=== PATIENT | female | born 1945 | race Caucasian/White ===

== ENCOUNTER 2020-07-24 00:31 | Observation (INO) | payer MEDICARE, OTHER ==
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
[2020-07-24] MEDS ORDERED: Ondansetron ODT 4 MG TAB PO PRN (02:27)
[2020-07-24] MEDS ORDERED: Ondansetron PF 4 MG/2 ML Vial IVP PRN (02:27)
[2020-07-24] MEDS ORDERED: Acetaminophen 325 MG TAB PO PRN (02:27)
[2020-07-24] MEDS ORDERED: Dextrose 50% Abboject 50 ML SYRINGE SLOW IVP PRN (03:25)
[2020-07-24] MEDS ORDERED: HumaLOG 300 UNITS/3 ML VIAL SC PRN ×2 (03:25)
[2020-07-24] MEDS ORDERED: Dextrose 5% in Water 1,000 ML IV PRN (03:25)
[2020-07-24 03:41] LABS: #Basophils 0.1 thou/uL (0.0-0.2); #Eosinphils 0.1 thou/uL (0.0-0.7); #Lymphocytes 2.4 thou/uL (1.20-3.40); #Monocytes 0.8 thou/uL (0.11-0.59); #Neutrophils 5.9 thou/uL (1.40-6.50); %Basophils 0.7 % (0.0-1.0); %Eosinophils 1.1 % (0.0-10.0); %Lymphocytes 25.4 % (21.0-51.0); %Monocytes 9.1 % (0.0-10.0); %Neutrophils 63.8 % (42.0-75.0); Hemoglobin 11.5 g/dL (12.0-16.0); Mean Corpuscular HGB CONC 34.7 g/dL (32.0-36.0); Mean Corpuscular Hemoglobin 30.9 pg (27.0-31.0); Mean Corpuscular Volume 89.1 fL (78.0-98.0); Mean Platelet Volume 7.7 fL (7.4-10.4); Platelet Count 234 thou/uL (130-400); RBC Distribution Width 12.6 % (11.5-14.5); Red Blood Cell (RBC) Count 3.73 mill/uL (4.20-5.40); White Blood Cell (WBC) Count 9.3 thou/uL (4.8-10.8)
[2020-07-24 04:00] LABS: ALT (SGPT) 12 U/L (8-55); AST (SGOT) 16 U/L (5-34); Albumin 3.9 g/dL (3.4-4.8); Alkaline Phosphatase 71 U/L (40-110); Anion Gap 14 mmol/L (10-20); BUN (Urea Nitrogen) 11 mg/dL (9.8-20.1); Bilirubin, Total 0.4 mg/dL (0.2-1.2); Calc. Creatinine Clearance 0 mL/min (70-130); Calcium 9.4 mg/dL (7.8-10.44); Carbon Dioxide 25 mmol/L (23-31); Chloride 98 mmol/L (98-107); Estimated GFR-MDRD 76; Globulin 2.8 g/dL (2.4-3.5); Glucose 112 mg/dL (83-110); Magnesium 1.7 mg/dL (1.6-2.6); Protein, Total 6.7 g/dL (6.0-8.3); Sodium 133 mmol/L (136-145)
[2020-07-24 04:14] LABS: Troponin I 0.011 ng/mL (< 0.028)
[2020-07-24 05:14] VITALS: BMI 28.1
[2020-07-24 06:28] LABS: Phosphorus 3.3 mg/dL (2.3-4.7)
[2020-07-24] MEDS ORDERED: Glimepiride 4 MG TAB PO SCH (08:00)
[2020-07-24 08:42] LABS: Troponin I Less than 0.010 ng/mL (< 0.028)
[2020-07-24] MEDS ORDERED: Hydrochlorothiazide 25 MG TAB PO SCH (09:00)
[2020-07-24] MEDS ORDERED: Enoxaparin Sodium 40 MG/0.4 ML SYRINGE SC SCH (09:00)
[2020-07-24] MEDS ORDERED: Aspirin 81 mg Enteric Coated Tablet PO SCH (09:00)
[2020-07-24] MEDS: metFORMIN 500 MG TAB PO SCH ×2 (09:19→18:22)
--- NOTE | 2020-07-24 10:53 | RAD ---
CHEST TWO VIEWS: 07/24/20 PROVIDED CLINICAL HISTORY: Cough. FINDINGS: The cardiac and mediastinal silhouette is within normal limits. No focal consolidation, pleural fluid or pneumothorax apparent. IMPRESSION: No evidence for an acute cardiopulmonary process. POS: VERONICA
--- NOTE | 2020-07-24 16:25 | CON ---
DATE OF CONSULTATION: HISTORY OF PRESENT ILLNESS: The patient is a 75-year-old woman, who presented with dizziness. The patient has a previous history of coronary artery disease. She states she underwent a cardiac catheterization 2 years ago. She was found to have mild CAD. The patient was in her usual state of health when she suddenly became very lightheaded and dizzy. She was found to be hypoglycemic. She ate some food and felt much better. She went to a local emergency room. The patient was felt to be in a regular heart rhythm and transferred for further evaluation. The patient denied having any chest discomfort. The patient does report she has occasional palpitations. PAST MEDICAL HISTORY: 1. Coronary artery disease. 2. Diabetes mellitus. 3. Hypertension. PAST SURGICAL HISTORY: Cataract surgery, tonsillectomy, cholecystectomy, and breast biopsy. SOCIAL HISTORY: Nonsmoker. ALLERGIES: PENICILLIN. MEDICATIONS: See nursing list. PHYSICAL EXAMINATION: GENERAL: Well-developed woman, in no acute distress. VITAL SIGNS: Blood pressure 121/65. NECK: No jugular venous distention. LUNGS: Clear to auscultation. HEART: Regular rate and rhythm. Normal S1 and S2. ABDOMEN: Nondistended. EXTREMITIES: Show no edema. VASCULAR: Radial pulses are 2+. LABORATORY DATA: White blood cell count 9.3, hemoglobin 11.5, hematocrit 33.2, and platelets are 234. Sodium was 133, potassium 4.0, chloride 98, bicarbonate 25, BUN 11, and creatinine 0.75, and her glucose was 112. EKG normal sinus rhythm with premature atrial contractions, nonspecific T-wave abnormality. IMPRESSION: 1. Dizziness secondary to hypoglycemia. 2. History of coronary artery disease. 3. Premature atrial complexes. 4. Hypertension. 5. Obesity. PLAN: This patient had a hypoglycemic reaction. She is probably on to high a dose of metformin. From a Cardiology standpoint, there is no evidence of atrial fibrillation on the electrocardiogram that was obtained from [facility]. She can be discharged and follow up with her braille duplicating machine operator in [place]. She is scheduled to see him next week. Job ID: [id number] MTDD
[2020-07-24 19:23] VITALS: BP 133/64; TEMP 98.3
[2020-07-24] MEDS ORDERED: Pravastatin Sodium 40 MG TAB PO SCH (21:00)
[2020-07-24] MEDS ORDERED: FLU VACC QS2020-21(65YR UP)/PF 240 MCG/0.7 ML SYRINGE IM ONE (21:00)
--- NOTE | 2020-07-26 11:59 | DIS ---
DATE OF ADMISSION: 07/24/2020 DATE OF DISCHARGE: 07/24/2020 TEST TECH: Cardiology, Dr. Whitt. PRIMARY DIAGNOSIS: Premature atrial contraction. SECONDARY DIAGNOSES: 1. Hypoglycemia. 2. Hypertension. 3. Diabetes. 4. Normocytic anemia. DISCHARGE MEDICATIONS: 1. Metformin 1000 mg p.o. b.i.d. with meals. 2. Imdur ER 30 mg p.o. daily. 3. Hydrochlorothiazide 25 mg p.o. daily. 4. Pravastatin 40 mg p.o. q.p.m. 5. Aspirin 81 mg p.o. Discontinued medications: Glimepiride 4 mg p.o. b.i.d. HISTORY OF PRESENT ILLNESS/HOSPITAL COURSE: This is a 75-year-old female with past medical history of hypertension, diabetes, hyperlipidemia, and coronary artery disease, who presented to the ED for reported new onset of atrial fibrillation. She had been seen at an outside ER after not feeling like herself and found to be hypoglycemic. An EKG was obtained at the outside ER and per report given, this EKG showed atrial fibrillation. Because of new onset atrial fibrillation, Cardiology was consulted. Originally per records from the outside ER were not available as she was not transferred, but rather signed out AMA and then was driven to our ER by a family member. She was evaluated by Cardiology and after receiving her EKG from the outside facility, was found not to have any evidence of atrial fibrillation, but rather to have premature atrial complexes on her EKG. This is consistent with her telemetry monitoring while she was admitted to our facility. She was noted to have an additional episode of hypoglycemia, which was corrected by drinking juice and eating Austen crackers. Her glimepiride was held while she was inpatient and she was instructed to stop this medication upon discharge. She does check her blood sugar at home, and if her blood sugar starts to get elevated, she was instructed to call her primary care physician. She is from out of town, and she is followed by a casing mixer, Dr. Bravo in [place], [place]. She has an appointment to follow up with her casing mixer within the next 2 weeks. The patient also had an echocardiogram performed while she was inpatient, which revealed an ejection fraction of 60% to 65%, and mildly dilated left atrium, and impaired relaxation compatible with diastolic dysfunction. DISPOSITION: Stable. DISCHARGE INSTRUCTIONS: 1. Location: Home. 2. Diet: Heart healthy. 3. Activity: As tolerated. 4. Followup: With your primary care physician within the next 1 week and with your casing mixer as scheduled within the next 2 weeks. Job ID: [id number]
== END 2020-07-24 19:51 | disposition home or self-care (01) ==
LOC: ERS 00:31 → 2SE 02:02
PROVIDERS: ADMIT Student in an Organized Health Care Education/Training Program; ATTEND Student in an Organized Health Care Education/Training Program
DX: I49.1 Atrial premature depolarization (principal); E11.649 Type 2 diabetes mellitus with hypoglycemia without coma; I10 Essential (primary) hypertension; D64.9 Anemia, unspecified; E87.6 Hypokalemia; K74.60 Unspecified cirrhosis of liver; K76.6 Portal hypertension; E78.5 Hyperlipidemia, unspecified; I25.10 Atherosclerotic heart disease of native coronary artery without angina pectoris; E66.9 Obesity, unspecified; Z68.28 Body mass index [BMI] 28.0-28.9, adult; Z23 Encounter for immunization; Z79.82 Long term (current) use of aspirin; Z79.84 Long term (current) use of oral hypoglycemic drugs; Z79.899 Other long term (current) drug therapy; Z88.0 Allergy status to penicillin
CPT/HCPCS: 71046; 82962; 83735; 84100; 84484 ×2; 90662; 93005; 93306; 99285; G0008; G0378 ×2; 36415; 36416; 80053; 84443; 85025; 90471